=== PATIENT | female | born 1995 | race Hispanic/Latino ===

== ENCOUNTER 2019-12-06 18:44 | Emergency (ER) | payer SELFPAY ==
[2019-12-06 20:43] LABS: Urine Glucose NEGATIVE (NEG)
[2019-12-06 20:44] LABS: Urine Blood TRACE (NEG); Urine Protein 1+ (NEG)
[2019-12-06 22:42] LABS: Absolute Lymphocytes (CBC) 2.8 K/uL (0.7-4.9); Basophils % 0.9 % (0-1.3); Hematocrit 43.4 % (36.0-45.0); MPV 8.7 fL (7.6-11.3); RBC Red Blood Cell Count 5.28 M/uL (3.86-4.86)
[2019-12-06 22:45] LABS: Urine Blood 1+ (NEG); Urine Glucose NEGATIVE (NEG); Urine Protein 2+ (NEG); Urine Specific Gravity >1.030 (1.005-1.030)
[2019-12-06 22:46] LABS: Barbiturates NEGATIVE (NEGATIVE); Benzodiazepines NEGATIVE (NEGATIVE); Cocaine NEGATIVE (NEGATIVE); METHAMPHETAM NEGATIVE (NEGATIVE); Methadone NEGATIVE (NEGATIVE); Opiates NEGATIVE (NEGATIVE); Phencyclidine NEGATIVE (NEGATIVE); THC Cannibis NEGATIVE (NEGATIVE)
[2019-12-06 22:47] LABS: Protime INR 1.02
[2019-12-06 23:29] LABS: ALT/SGPT 41 U/L (12-78); AST/SGOT 23 U/L (15-37); Albumin 4.7 g/dL (3.4-5.0); Alkaline Phosphatase 127 U/L (45-117); BUN Blood Urea Nitrogen 8 mg/dL (7-18); Bicarbonate 27 mmol/L (21-32); Bilirubin Direct 0.2 mg/dL (0-0.2); Bilirubin Total 0.9 mg/dL (0.2-1.0); Glucose Level 93 mg/dL (74-106); Potassium 3.6 mmol/L (3.5-5.1); Sodium Level 140 mmol/L (136-145)
--- NOTE | 2019-12-07 00:25 | EDPHYS ---
Physician Documentation [facility] Name: Phyllis Grijalva Age: 24 yrs Sex: Female : 1995 Arrival Date: 12/06/2019 Time: 18:47 Bed 15 Private MD: ED Physician Christiano Rosen HPI: 12/05 21:47 This 24 yrs old Female presents to ER via Ambulatory with complaints of mh7 Anxiety, Sore Throat, Decreased Appetite. 21:47 The patient presents to the emergency department with anxiety, over unknown mh7 circumstances, depression, over unknown circumstances. Onset: The symptoms/episode began/occurred 2 week(s) ago. Past psychiatric history: Prior diagnosis: Anxiety, Psychiatric medications include: none, Primary psychiatric physician: the patient does not have a primary psychiatric physician, the patient has not had a prior suicide gesture, the patient does not have a previous inpatient psychiatric history, the patient's last psychiatric treatment was 2 year(s) ago. Associated signs and symptoms: Pertinent negatives: abdominal pain, chest pain, chills, delusions, depression, fever, hallucinations, headache, homicidal ideation, nausea, night sweats, palpitations, paranoia, shortness of breath, substance abuse, suicide ideation, tremor, vomiting. Severity of symptoms: At their worst the symptoms were mild. 12/06 00:20 The patient has experienced similar episodes in the past, a few times. 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 - Social history:: Smoking status: Patient denies any tobacco usage or history of. ROS: 12/06 00:20 Constitutional: Negative for fever, chills, and weight loss, Eyes: Negative for injury, mh7 pain, redness, and discharge, Neck: Negative for injury, pain, and swelling, Cardiovascular: Negative for chest pain, palpitations, and edema, Respiratory: Negative for shortness of breath, cough, wheezing, and pleuritic chest pain, Abdomen/GI: Negative for abdominal pain, nausea, vomiting, diarrhea, and constipation, Back: Negative for injury and pain, : Negative for injury, bleeding, discharge, and swelling, MS/Extremity: Negative for injury and deformity, Skin: Negative for injury, rash, and discoloration, Neuro: Negative for headache, weakness, numbness, tingling, and seizure, Allergy/Immunology: Negative for hives, rash, and allergies, Endocrine: Negative for neck swelling, polydipsia, polyuria, polyphagia, and marked weight changes, Hematologic/Lymphatic: Negative for swollen nodes, abnormal bleeding, and unusual bruising. Exam: 00:20 Constitutional: This is a well developed, well nourished patient who is awake, alert, mh7 and in no acute distress. Head/Face: Normocephalic, atraumatic. Eyes: Pupils equal round and reactive to light, extra-ocular motions intact. Lids and lashes normal. Conjunctiva and sclera are non-icteric and not injected. Cornea within normal limits. Periorbital areas with no swelling, redness, or edema. ENT: Nares patent. No nasal discharge, no septal abnormalities noted. Tympanic membranes are normal and external auditory canals are clear. Oropharynx with no redness, swelling, or masses, exudates, or evidence of obstruction, uvula midline. Mucous membranes moist. Neck: Trachea midline, no thyromegaly or masses palpated, and no cervical lymphadenopathy. Supple, full range of motion without nuchal rigidity, or vertebral point tenderness. No Meningismus. Chest/axilla: Normal chest wall appearance and motion. Nontender with no deformity. No lesions are appreciated. Cardiovascular: Regular rate and rhythm with a normal S1 and S2. No gallops, murmurs, or rubs. Normal PMI, no JVD. No pulse deficits. Respiratory: Lungs have equal breath sounds bilaterally, clear to auscultation and percussion. No rales, rhonchi or wheezes noted. No increased work of breathing, no retractions or nasal flaring. Abdomen/GI: Soft, non-tender, with normal bowel sounds. No distension or tympany. No guarding or rebound. No evidence of tenderness throughout. Back: No spinal tenderness. No costovertebral tenderness. Full range of motion. Skin: Warm, dry with normal turgor. Normal color with no rashes, no lesions, and no evidence of cellulitis. MS/ Extremity: Pulses equal, no cyanosis. Neurovascular intact. Full, normal range of motion. Neuro: Awake and alert, GCS 15, oriented to person, place, time, and situation. Cranial nerves II-XII grossly intact. Motor strength 5/5 in all extremities. Sensory grossly intact. Cerebellar exam normal. Normal gait. Psych: Awake, alert, with orientation to person, place and time. Behavior, mood, and affect are within normal limits. Vital Signs: 12/05 19:23 BP 116 / 74; Pulse 81; Resp 16 S; Temp 97.3(TE); Pulse Ox 98% on R/A; Weight 82.55 kg ca1 (R); Height 5 ft. 2 in. (157.48 cm) (R); 22:57 BP 113 / 83; Pulse 82; Resp 16; Pulse Ox 99% on R/A; Pain 0/10; ao 19:23 Body Mass Index 33.29 (82.55 kg, 157.48 cm) ca1 MDM: 21:30 Patient medically screened. [facility] 12/06 00:20 Differential diagnosis: drug withdrawal. acute psychotic break, depression, Anxiety, 7 pharyngitis, globus sensation. Data reviewed: vital signs, nurses notes, lab test result(s), CBC, electrolytes, urinalysis. Data interpreted: Pulse oximetry: on room air is 99 %. Interpretation: normal. Counseling: I had a detailed discussion with the patient and/or guardian regarding: the historical points, exam findings, and any diagnostic results supporting the discharge/admit diagnosis, lab results, the need for outpatient follow up, to return to the emergency department if symptoms worsen or persist or if there are any questions or concerns that arise at home. Response to treatment: the patient's symptoms have markedly improved after treatment. 12/05 20:28 Order name: Urine --Ancillary (enter results); Complete Time: 22:28 tt3 12/05 20:28 Order name: Urine Dipstick--Ancillary (enter results); Complete Time: 22:28 tt3 12/05 21:31 Order name: Acetaminophen; Complete Time: 23:49 7 12/05 21:31 Order name: Basic Metabolic Panel; Complete Time: 23:49 [facility] 12/05 21:31 Order name: CBC with Diff; Complete Time: 23:49 12/05 21:31 Order name: ETOH Level; Complete Time: 23:49 12/05 21:31 Order name: Hepatic Function; Complete Time: 23:49 12/05 21:31 Order name: PT-INR; Complete Time: 23:49 12/05 21:31 Order name: Ptt, Activated; Complete Time: 23:49 12/05 21:31 Order name: Salicylate; Complete Time: 23:49 12/05 21:31 Order name: Urine Drug Screen; Complete Time: 23:49 12/05 21:31 Order name: Rapid Strep; Complete Time: 23:49 12/05 22:32 Order name: Urine Dipstick--Ancillary (enter results); Complete Time: 23:49 12/05 22:32 Order name: Urine --Ancillary (enter results); Complete Time: 23:49 12/05 21:31 Order name: IV Saline Lock; Complete Time: 22:43 12/05 21:31 Order name: Labs collected and sent; Complete Time: 22:43 12/05 21:31 Order name: Urine Dipstick-Ancillary (obtain specimen); Complete Time: 22:43 12/05 21:31 Order name: Urine Test (obtain specimen); Complete Time: 22:42 12/05 22:48 Order name: Throat Culture EDMS Administered Medications: No medications were administered Disposition: 12/07/19 00:25 Discharged to Home. Impression: Anxiety disorder, unspecified, Sore Throat. - Condition is Stable. - Discharge Instructions: Sore Throat, [id number], Generalized Anxiety Disorder. - Prescriptions for Hydroxyzine HCl 50 mg Oral Tablet - take 1 tablet by ORAL route every 8 hours As needed; 20 tablet. - Medication Reconciliation Form, Thank You Letter, Antibiotic Education, Prescription Opioid Use form. - Follow up: Private Physician; When: 2 - 3 days; Reason: Worsening of condition, Recheck today's complaints, Re-evaluation by your physician. Follow up: Dave Vasquez MD; When: 2 - 3 days; Reason: Worsening of condition, Recheck today's complaints. - Problem is an ongoing problem. - Symptoms have improved. 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 Impression: Anxiety disorder, unspecified; ao Sore Throat. Condition is Stable. Forms are Medication Reconciliation Form, Thank You Letter, Antibiotic Education, Prescription Opioid Use. Follow up: Private Physician; When: 2 - 3 days; Reason: Worsening of condition, Recheck today's complaints, Re-evaluation by your physician. Follow up: Dave Vasquez; When: 2 - 3 days; Reason: Worsening of condition, Recheck today's complaints. Problem is an ongoing problem. Symptoms have improved. mh7
--- NOTE | 2019-12-07 00:25 | ER ---
Nurse's Notes [facility] Name: Phyllis Grijalva Age: 24 yrs Sex: Female : 1995 Arrival Date: 12/06/2019 Time: 18:47 Bed 15 Private MD: Diagnosis: Anxiety disorder, unspecified;Sore Throat Presentation: 12/05 19:23 Chief complaint: Spouse and/or significant other states: She feel like she's nervous. ca1 She doesn't want to eat. She feels like there is something in her throat like a lump. This has been going on for 2 weeks now. She doesn't have a sore threat. She took some Tylenol 2 days ago, it went away but when she did not take Tylenol, she feels if again. She also says that she is not sleeping good. Denies cough, denies SOB, denies fever. Coronavirus screen: Proceed with normal triage. Patient denies a cough. Patient denies shortness of breath or difficulty breathing. Patient denies measured and/or subjective temperature greater than 100.4F prior to today's visit. Patient denies travel on a cruise ship or to a country the [facility] currently lists as an affected area. Patient denies contact with known and/or suspected case of COVID-19. Ebola Screen: Patient negative for fever greater than or equal to 101.5 degrees Fahrenheit, and additional compatible Ebola Virus Disease symptoms Patient denies exposure to infectious person. Patient denies travel to an Ebola-affected area in the 21 days before illness onset. No symptoms or risks identified at this time. Initial Sepsis Screen: Does the patient meet any 2 criteria? No. Patient's initial sepsis screen is negative. Does the patient have a suspected source of infection? No. Patient's initial sepsis screen is negative. Risk Assessment: Do you want to hurt yourself or someone else? Patient reports no desire to harm self or others. Onset of symptoms was December 06, 2019. 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 - Social history:: Smoking status: Patient denies any tobacco usage or history of. Screenin:44 Abuse screen: Denies threats or abuse. Denies injuries from another. Nutritional ao screening: No deficits noted. Tuberculosis screening: No symptoms or risk factors identified. Fall Risk None identified. Assessment: 22:10 General: Appears in no apparent distress. comfortable, Behavior is calm, cooperative, ao appropriate for age. 22:10 Pain: Denies pain. Neuro: Level of Consciousness is listless, Oriented to Appropriate ao for age Moves all extremities. Full function Speech is normal, Facial symmetry appears normal. Cardiovascular: Capillary refill < 3 seconds Patient's skin is warm and dry. Respiratory: Airway is patent Respiratory effort is even, unlabored, Respiratory pattern is regular, symmetrical, Breath sounds are clear bilaterally. GI: Abdomen is non-distended. : No signs and/or symptoms were reported regarding the genitourinary system. EENT: Throat is clear is pink. Derm: No signs and/or symptoms reported regarding the dermatologic system. Musculoskeletal: No signs and/or symptoms reported regarding the musculoskeletal system. Circulation, motion, and sensation intact. Range of motion:. 22:57 Reassessment: Patient appears in no apparent distress at this time. Patient and/or ao family updated on plan of care and expected duration. Pain level reassessed. Waiting on lab work. 12/06 01:32 Reassessment: Patient appears in no apparent distress at this time. DC given to patient ao patient agree with POC and to follow up with PCP or a psychiatry. Provided with information on Low cost clinics, PCP and psychiatry in the area. Vital Signs: 12/05 19:23 BP 116 / 74; Pulse 81; Resp 16 S; Temp 97.3(TE); Pulse Ox 98% on R/A; Weight 82.55 kg ca1 (R); Height 5 ft. 2 in. (157.48 cm) (R); 22:57 BP 113 / 83; Pulse 82; Resp 16; Pulse Ox 99% on R/A; Pain 0/10; ao 19:23 Body Mass Index 33.29 (82.55 kg, 157.48 cm) ca1 ED Course: 18:47 Patient arrived in ED. ag5 19:27 Triage completed. ca1 19:27 Arm band placed on right wrist. ca1 21:00 Christiano Rosen MD is Attending Physician. mh7 22:04 Gab Amato, RN is Primary Nurse. ao 22:44 Patient has correct armband on for positive identification. Pulse ox on. NIBP on. ao 12/06 00:24 Dave Vasquez MD is Referral Physician. mh7 01:25 No provider procedures requiring assistance completed. IV discontinued, intact, ao bleeding controlled, No redness/swelling at site. Pressure dressing applied. Administered Medications: No medications were administered Outcome: 00:25 Discharge ordered by . mh7 01:25 Discharged to home ambulatory. ao 01:25 Condition: stable 01:25 Discharge instructions given to patient, Instructed on discharge instructions, follow up and referral plans. Demonstrated understanding of instructions, follow-up care, medications. 01:34 Patient left the ED. ao Signatures: Gab Amato RN RN ao Acob, Cheryl, RN RN ca1 Nehal Castellano ag5 Christiano Rosen MD MD [facility]
[2019-12-07 03:12] VITALS: BP 116/74; TEMP 97.3; O2SAT 98
== END 2019-12-07 01:34 | disposition home or self-care (01) ==
LOC: ER 18:44
DX: F41.9 Anxiety disorder, unspecified (principal); J02.9 Acute pharyngitis, unspecified
CPT/HCPCS: 36415; 80048; 80076; 80307; 80320; 80329; 81003; 81025; 85025; 85610; 85730; 87070; 87081; 99283

== ENCOUNTER 2021-03-12 13:14 | Emergency (ER) | payer SELFPAY ==
--- NOTE | 2021-03-12 13:50 | ER ---
Nurse's Notes [facility] Name: Phyllis Grijalva Age: 26 yrs Sex: Female : 1995 Arrival Date: 03/12/2021 Time: 13:14 Bed 11 [facility] MD: Diagnosis: mood disturbance Presentation: 03/12 13:25 Coronavirus screen: At this time, the client does not indicate any symptoms associated ll1 with coronavirus-19. Ebola Screen: Patient denies travel to an Ebola-affected area in the 21 days before illness onset. Initial Sepsis Screen: Does the patient meet any 2 criteria? No. Patient's initial sepsis screen is negative. Does the patient have a suspected source of infection? No. Patient's initial sepsis screen is negative. Risk Assessment: Do you want to hurt yourself or someone else? Patient reports no desire to harm self or others. Onset of symptoms is unknown. 13:25 Method Of Arrival: Ambulatory ll1 13:25 Acuity: LAURA 3 ll1 13:26 Chief complaint: Patient states: Here for anxiety. Polish speaking. ll1 Historical: - Allergies: 13:25 No Known Allergies; ll1 - PMHx: 13:25 None; ll1 - Immunization history:: Adult Immunizations up to date. - Social history:: Smoking status: Patient denies any tobacco usage or history of. - Family history:: not pertinent. - Hospitalizations: : No recent hospitalization is reported. Screenin:53 Abuse screen: Denies threats or abuse. Nutritional screening: No deficits noted. vg1 Tuberculosis screening: No symptoms or risk factors identified. Fall Risk No fall in past 12 months (0 pts). No secondary diagnosis (0 pts). No IV (0 pts). Ambulatory Aid- None/Bed Rest/Nurse Assist (0 pts). Gait- Normal/Bed Rest/Wheelchair (0 pts) Mental Status- Oriented to own ability (0 pts). Total Carmona Fall Scale indicates No Risk (0-24 pts). Assessment: 13:48 General: Appears in no apparent distress. uncomfortable, Behavior is calm, cooperative. vg1 Pain: Denies pain. Neuro: Level of Consciousness is awake, alert, obeys commands, Oriented to person, place, time, situation. Cardiovascular: Patient's skin is warm and dry. Respiratory: Airway is patent Respiratory effort is even, unlabored. GI: No signs and/or symptoms were reported involving the gastrointestinal system. : No signs and/or symptoms were reported regarding the genitourinary system. EENT: No signs and/or symptoms were reported regarding the EENT system. Derm: Skin is intact, is healthy with good turgor. Musculoskeletal: Circulation, motion, and sensation intact. 13:49 Reassessment: Pt states has been taking depression medication for about three weeks, vg1 feels like they may not be working. Was reassured by provider that it takes about 6 weeks for medication to go into effect. pt states feels depressed after having baby about three months ago. Denies SI or HI. Vital Signs: 13:25 Pain 0/10; ll1 13:26 BP 117 / 78; Pulse 78; Resp 18; Temp 97.1; Pulse Ox 100% ; ll1 ED Course: 13:14 Patient arrived in ED. am2 13:25 Triage completed. ll1 13:26 Arm band placed on Patient placed in an exam room, on a stretcher. ll1 13:28 Jamal Barton MD is Attending Physician. rn 13:32 Agnes Ivy, ESME is Primary Nurse. vg1 13:53 Patient has correct armband on for positive identification. vg1 13:53 No provider procedures requiring assistance completed. Patient did not have IV access vg1 during this emergency room visit. Administered Medications: No medications were administered Outcome: 13:49 Discharge ordered by . rn 13:53 Discharged to home ambulatory. vg1 13:53 Condition: stable 13:53 Discharge instructions given to patient, Instructed on discharge instructions, follow up and referral plans. medication usage, Demonstrated understanding of instructions, follow-up care, medications, Prescriptions given X 1. 14:02 Patient left the ED. vg1 Signatures: Jamal Braton MD MD rn Moreno, Amanda am2 Agnes Ivy RN RN vg1 Sami Holcomb RN RN ll1 Corrections: (The following items were deleted from the chart) 13:26 13:25 PMHx: None; ll1 ll1
--- NOTE | 2021-03-12 13:50 | EDPHYS ---
Physician Documentation [facility] Name: Phyllis Grijalva Age: 26 yrs Sex: Female : 1995 Arrival Date: 03/12/2021 Time: 13:14 Bed 11 Private MD: ED Physician Jamal Barton HPI: 03/12 13:45 This 26 yrs old Female presents to ER via Ambulatory with complaints of rn Anxiety. 13:45 This 26 yrs old Female presents to ER via Ambulatory with complaints of rn Anxiety, depression. 13:45 The patient presents to the emergency department with anxiety, depression. Onset: The rn symptoms/episode began/occurred 2 month(s) ago. Associated signs and symptoms: Pertinent positives; anxiety, depression, Pertinent negatives: fever, hallucinations, homicidal ideation, substance abuse, suicide ideation. Severity of symptoms: At their worst the symptoms were moderate in the emergency department the symptoms are unchanged. The patient has experienced a previous episode. The patient has not recently seen a physician. Patient reports had a baby 2 months ago, since then has been feeling more and more depressed. States her last same thing happened and lasted approximately 3 months. At that time was prescribed sertraline and felt like it helped. Started taking sertraline again 3 weeks ago when stopped breast-feeding baby. Does not feel like it is helping this time. Does not have any thoughts of hurting babies or anybody else. Does not have thoughts of hurting herself. Has some family to help her while is at work. States tried anxiety medication, a benzodiazepine from [place] but seems to just put her to sleep. Not abusing any drugs otherwise or alcohol.. Historical: - Allergies: 13:25 No Known Allergies; ll1 - PMHx: 13:25 None; ll1 - Immunization history:: Adult Immunizations up to date. - Social history:: Smoking status: Patient denies any tobacco usage or history of. - Family history:: not pertinent. - Hospitalizations: : No recent hospitalization is reported. ROS: 13:45 Constitutional: Negative for fever, chills, and weight loss, Eyes: Negative for injury, rn pain, redness, and discharge, ENT: Negative for injury, pain, and discharge, Neck: Negative for injury, pain, and swelling, Cardiovascular: Negative for chest pain, palpitations, and edema, Respiratory: Negative for shortness of breath, cough, wheezing, and pleuritic chest pain, Abdomen/GI: Negative for abdominal pain, nausea, vomiting, diarrhea, and constipation, Back: Negative for injury and pain, : Negative for injury, bleeding, discharge, and swelling, MS/Extremity: Negative for injury and deformity, Skin: Negative for injury, rash, and discoloration, Neuro: Negative for headache, weakness, numbness, tingling, and seizure, Psych: Negative for suicide ideation, homicidal ideation, and hallucinations. Exam: 13:45 Constitutional: This is a well developed, well nourished patient who is awake, alert, rn and in no acute distress. Head/Face: Normocephalic, atraumatic. Eyes: Periorbital areas with no swelling, redness, or edema. Skin: Warm, dry Neuro: Awake and alert, GCS 15, oriented to person, place, time, and situation. Cranial nerves II-XII grossly intact. Motor strength 5/5 in all extremities. Sensory grossly intact. Cerebellar exam normal. Normal gait. Psych: Awake, alert, with orientation to person, place and time. Mood seems depressed. Vital Signs: 13:25 Pain 0/10; ll1 13:26 BP 117 / 78; Pulse 78; Resp 18; Temp 97.1; Pulse Ox 100% ; ll1 MDM: 13:28 Patient medically screened. rn 13:45 Differential diagnosis: depression, blues, depression, anxiety. rn Data reviewed: vital signs, nurses notes, and as a result, I will discharge patient. Counseling: I had a detailed discussion with the patient and/or guardian regarding: the historical points, exam findings, and any diagnostic results supporting the discharge/admit diagnosis, the need for outpatient follow up, to return to the emergency department if symptoms worsen or persist or if there are any questions or concerns that arise at home. Special discussion: I discussed with the patient/guardian in detail that at this point there is no indication for admission to the hospital. It is understood, however, that if the symptoms persist or worsen the patient needs to return immediately for re-evaluation. Based on the history and exam findings, there is no indication for further emergent testing or inpatient evaluation. I discussed with the patient/guardian the need to see the psychiatrist for further evaluation of the symptoms. ED course: Patient requests a medication change since does not feel like it is working. Told her it could take another few weeks to start working but patient insists that we change it. Will prescribe Celexa as patient no longer breast-feeding. Will DC home and recommend psychiatric follow-up. Return precautions given and understood especially if symptoms worsen or is having any thoughts of hurting herself or others.. Administered Medications: No medications were administered Disposition Summary: 03/12/21 13:49 Discharge Ordered Location: Home rn Problem: an ongoing problem rn Symptoms: are unchanged rn Condition: Stable rn Diagnosis - mood disturbance rn Followup: rn - With: Private Physician - When: As needed - Reason: Recheck today's complaints, Re-evaluation by your physician Discharge Instructions: - Discharge Summary Sheet rn - Baby Blues rn - Depression rn Forms: - Medication Reconciliation Form rn - Thank You Letter rn - Antibiotic inclusion intern - Prescription Opioid Use rn - Work release form eb Prescriptions: - Celexa 20 mg Oral Tablet - take 1 tablet by ORAL route once daily; 60 tablet; Refills: 0, Product rn Selection Permitted Signatures: Jamal Barton MD MD rn Lewis, Lynsay, RN RN ll1 Corrections: (The following items were deleted from the chart) 13:26 13:25 PMHx: None; ll1 ll1
[2021-03-12 14:07] VITALS: BP 117/78; TEMP 97.1; O2SAT 100
== END 2021-03-12 14:02 | disposition home or self-care (01) ==
LOC: ER 13:14
DX: O90.6 Postpartum mood disturbance (principal)
CPT/HCPCS: 99282

== ENCOUNTER 2023-09-13 20:24 | Emergency (ER) | payer OTHER ==
[2023-09-13] MEDS ORDERED: KETOROLAC 30 MG/ML INJ ONE (22:00)
[2023-09-13] MEDS ORDERED: ONDANSETRON 4 MG/2 ML VIAL ONE (22:00)
[2023-09-13] MEDS ORDERED: NA CHLORIDE 0.9% 1,000 ML ONE (22:00)
--- NOTE | 2023-09-13 22:18 | RAD REPORT ---
EXAM DESCRIPTION: US - Abdomen Exam Limited - 09/13/2023 9:47 pm CLINICAL HISTORY: ABD PAIN COMPARISON: Abdomen Exam Limited dated 10/02/2022 TECHNIQUE: Sonographic grayscale and color flow images of the right upper abdominal quadrant were o btained. FINDINGS: The gallbladder demonstrates no gallstones. No pericholecystic fluid or gallbladder wall t hickening. The common bile duct is normal measuring 2mm. The liver demonstrates no findings of intrahepatic biliary dilatation. IMPRESSION: Unremarkable examination.
[2023-09-13 22:24] LABS: Specific Gravity 1.015 (1.005-1.030)
[2023-09-13 22:36] LABS: Hemoglobin 12.8 g/dL (12.0-15.0); RBC Red Blood Cell Count 4.68 M/uL (3.86-4.86)
[2023-09-13 22:37] LABS: Absolute Eosinophils 0.2 K/uL (0-0.5); Absolute Lymphocytes (CBC) 3.2 K/uL (0.7-4.9); Absolute Monocytes 0.8 K/uL (0.1-1.3); Basophils % 0.5 % (0-1.3); Eosinophils % 2.4 % (0-4.4); Hematocrit 38.1 % (36.0-45.0); Lymphocytes % 34.6 % (15.3-44.8); MCH 27.3 pg (27.0-35.0); MCHC 33.5 g/dL (32.0-36.0); MCV 81.6 fL (80-100); MPV 8.6 fL (7.6-11.3); Monocytes % 8.3 % (3.3-12.3); Neutrophils % 54.2 % (41.7-73.7); Nucleated Red Blood Cells % 0.1 % (0-0); Platelets 330 thou/uL (152-406); Red Cell Distribution Width 13.8 % (12.1-15.2)
[2023-09-13 22:39] LABS: Specific Gravity 1.015 (1.005-1.030); Sqamous Epithelial <5 /HPF (None Seen); Urine Bacteria <20 /HPF (<20); Urine Bilirubin NEGATIVE (Negative); Urine Blood Negative (Negative); Urine Clarity Clear (Clear); Urine Color Light-Yellow (Yellow); Urine Culture Reflex Order NOT NEEDED; Urine Glucose NEGATIVE (Negative); Urine Ketones NEGATIVE (Negative); Urine Microscopic Reflex YN ORDER UMIC; Urine Nitrite NEGATIVE (Negative); Urine Protein 1+ (Negative); Urine RBC <5 /HPF (None Seen); Urine Urobilinogen Normal (Normal); Urine WBC <5 /HPF (<5); Urine pH 7.5 (5.0-7.0)
[2023-09-13 22:51] LABS: Albumin/Globulin Ratio 0.9 (1.1-1.8); Anion Gap 6.6 mEq/L (5.0-15.0); Bilirubin Total 0.6 mg/dL (0.2-1.0); Globulin 4.3 g/dL (2.3-3.5); Potassium 3.6 mEq/L (3.5-5.1); Protein, Total 8.3 g/dL (6.4-8.2)
--- NOTE | 2023-09-13 22:55 | ER ---
Nurse's Notes [facility] Name: Phyllis Grijalva Age: 28 yrs Sex: Female : 1995 Arrival Date: 09/13/2023 Time: 20:24 Bed 20 Private MD: Diagnosis: Upper abdominal pain, unspecified Presentation: 09/12 20:37 Chief complaint: Patient states: "for the past 3 weeks I've had right upper abdominal mb9 pain and nausea. Nothing is making it better. Last night I had pain like this there was something wrong with my gallbladder". Coronavirus screen: Vaccine status: Patient reports receiving the 2nd dose of the covid vaccine. Ebola Screen: No symptoms or risks identified at this time. Initial Sepsis Screen: Does the patient meet any 2 criteria? No. Patient's initial sepsis screen is negative. Does the patient have a suspected source of infection? No. Patient's initial sepsis screen is negative. Risk Assessment: Do you want to hurt yourself or someone else? Patient reports no desire to harm self or others. Onset of symptoms was September 13, 2023. 20:37 Acuity: LAURA 3 mb9 20:37 Method Of Arrival: Ambulatory mb9 Triage Assessment: 20:41 General: Appears in no apparent distress. Behavior is calm, cooperative. Pain: mb9 Complains of pain in abdomen. EENT: No signs and/or symptoms were reported regarding the EENT system. Neuro: Level of Consciousness is awake, alert, obeys commands, Oriented to person, place, time, situation, Appropriate for age. Cardiovascular: Patient's skin is warm and dry. Respiratory: Airway is patent Respiratory effort is even, unlabored, Respiratory pattern is regular, symmetrical. GI: Abdomen is round non-distended, Abd is soft Abdomen is tender to palpation in right upper quadrant. : No signs and/or symptoms were reported regarding the genitourinary system. Derm: Skin is pink, warm \\T\\ dry. Musculoskeletal: Range of motion: intact in all extremities. Historical: - Allergies: 20:39 No Known Allergies; mb9 - Home Meds: 20:39 None [Active]; mb9 - PMHx: 20:39 None; mb9 - PSHx: 20:39 section; mb9 - Immunization history:: Adult Immunizations up to date. - Infectious Disease History:: Denies. - Social history:: Smoking status: Patient denies any tobacco usage or history of. Screenin:07 [facility] ED Fall Risk Assessment (Adult) History of falling in the last 3 months, tm6 including since admission No falls in past 3 months (0 pts) Confusion or Disorientation No (0 pts) Intoxicated or Sedated No (0 pts) Impaired Gait No (0 pts) Mobility Assist Device Used No (0 pt) Altered Elimination No (0 pt) Score/Fall Risk Level 0 - 2 = Low Risk Oriented to surroundings, Maintained a safe environment. Abuse screen: Denies threats or abuse. Denies injuries from another. Nutritional screening: No deficits noted. Tuberculosis screening: No symptoms or risk factors identified. Assessment: 22:07 General: Appears in no apparent distress. uncomfortable, Behavior is calm, cooperative. tm6 Pain: Complains of pain in right upper quadrant Pain currently is 5 out of 10 on a pain scale. Pain began 3 weeks ago Is continuous. Neuro: Level of Consciousness is awake, alert, obeys commands, Oriented to person, place, time, situation. Cardiovascular: No deficits noted. Patient's skin is warm and dry. Respiratory: Airway is patent Respiratory effort is even, unlabored, Respiratory pattern is regular, symmetrical. GI: Abdomen is flat, non-distended, Bowel sounds present X 4 quads. Abd is soft and non tender X 4 quads. Reports upper abdominal pain, nausea. : No signs and/or symptoms were reported regarding the genitourinary system. EENT: No signs and/or symptoms were reported regarding the EENT system. Derm: No signs and/or symptoms reported regarding the dermatologic system. Musculoskeletal: No signs and/or symptoms reported regarding the musculoskeletal system. 23:07 Reassessment: Patient and/or family updated on plan of care and expected duration. Pain tm6 level reassessed. Patient is alert, oriented x 3, equal unlabored respirations, skin warm/dry/pink. Patient states feeling better. Vital Signs: 20:37 BP 133 / 85; Pulse 80; Resp 18; Temp 98.2; Pulse Ox 99% on R/A; Weight 74.84 kg; Height mb9 5 ft. 5 in. ; 22:07 BP 135 / 86; Pulse 72; Pulse Ox 100% ; Pain 5/10; tm6 23:06 BP 126 / 80; Pulse 77; Resp 19; Temp 97.7; Pulse Ox 99% on R/A; Pain 2/10; tm6 20:37 Body Mass Index 27.46 (74.84 kg, 165.1 cm) mb9 22:07 Pain Scale: Adult tm6 23:06 Pain Scale: Adult tm6 ED Course: 20:27 Patient arrived in ED. im 20:37 Arm band placed on. mb9 20:38 Sasha Villareal FNP-C is PHCP. kb 20:38 Girma Austin MD is Attending Physician. kb 20:39 Triage completed. mb9 21:32 Irma Ken, ESME is Primary Nurse. tm6 21:49 Abdomen Limited US In Process Unspecified. EDMS 21:52 CBC with Diff Sent. tm6 21:52 CMP Sent. tm6 21:52 Lipase Sent. tm6 21:52 Test, Urine Sent. tm6 21:52 Urinalysis w/ reflexes Sent. tm6 21:53 Inserted saline lock: 22 gauge in left antecubital area, using aseptic technique. tm6 22:07 Patient has correct armband on for positive identification. Placed in gown. Bed in low tm6 position. Call light in reach. Side rails up X2. Provided Education on: plan of care. Client placed on continuous cardiac and pulse oximetry monitoring. NIBP monitoring applied. Pulse ox on. NIBP on. Door closed. Noise minimized. Lights dimmed. Warm blanket given. 23:07 No provider procedures requiring assistance completed. IV discontinued, intact, tm6 bleeding controlled, No redness/swelling at site. Pressure dressing applied. Administered Medications: 22:07 Drug: NS 0.9% IV 1000 ml IV at 1 bolus Per protocol; 1000 mL bolus Route: IV; Rate: 1 tm6 bolus; Site: left antecubital; 23:09 Follow up: IV Status: Completed infusion; IV Intake: 1000ml tm6 22:07 Drug: TORadol - Ketorolac IVP 15 mg IVP once Route: IVP; Site: left antecubital; tm6 22:07 Drug: Ondansetron IVP 4 mg IVP once; over 2 minutes Route: IVP; Site: left antecubital; tm6 Medication: 22:07 VIS not applicable for this client. tm6 Intake: 23:09 IV: 1000ml; Total: 1000ml. tm6 Outcome: 22:55 Discharge ordered by . patrick 23:07 Discharged to home ambulatory, tm6 23:07 Condition: stable 23:07 Discharge instructions given to patient, Instructed on discharge instructions, follow up and referral plans. medication usage, Demonstrated understanding of instructions, follow-up care, medications, Prescriptions given X 1, 23:09 Patient left the ED. tm6 Signatures: Dispatcher [employer] EDMS Sasha Villareal, GANG PUSHER-C GANG PUSHER-CkDarcy Perez, RN RN mb9 Sri José Tawney RN RN tm6 Corrections: (The following items were deleted from the chart) 20:41 20:37 Chief complaint: Patient states: "for the past 3 weeks I've had right upper mb9 abdominal pain and nausea. Nothing is making it better" mb9 22:10 21:53 Inserted saline lock: 20 gauge in left antecubital area, using aseptic technique. tm6 tm6
--- NOTE | 2023-09-13 22:55 | EDPHYS ---
Physician Documentation [facility] Name: Phyllis Grijalva Age: 28 yrs Sex: Female : 1995 Arrival Date: 09/13/2023 Time: 20:24 Bed 20 Private MD: ED Physician Girma Austin HPI: 09/12 21:38 This 28 yrs old Female presents to ER via Ambulatory with complaints of kb Abdominal Pain. 21:38 Pt is a 28 year old female who presents for RUQ pain for 3 weeks. Reports nausea. kb Denies vomiting, diarrhea, fever. States she was told she had gallstones in the past. States the pain has been constant since onset. . Historical: - Allergies: 20:39 No Known Allergies; mb9 - Home Meds: 20:39 None [Active]; mb9 - PMHx: 20:39 None; mb9 - PSHx: 20:39 section; mb9 - Immunization history:: Adult Immunizations up to date. - Infectious Disease History:: Denies. - Social history:: Smoking status: Patient denies any tobacco usage or history of. ROS: 21:39 Constitutional: As per HPI kb Exam: 21:39 Constitutional: This is a well developed, well nourished patient who is awake, alert, kb and in no acute distress. Head/Face: Normocephalic, atraumatic. ENT: Moist Mucous membranes Cardiovascular: Regular rate Respiratory: Respirations even and unlabored. No increased work of breathing. Talking in full sentences Skin: Warm, dry with normal turgor. Normal color. MS/ Extremity: Pulses equal, no cyanosis. Neurovascular intact. Full, normal range of motion. Neuro: Awake and alert, GCS 15, oriented to person, place, time, and situation. Moves all extremities. Normal gait. 21:39 Abdomen/GI: Inspection: abdomen appears normal, Bowel sounds: normal, Palpation: soft, in all quadrants, mild abdominal tenderness, in the right upper quadrant, Vital Signs: 20:37 BP 133 / 85; Pulse 80; Resp 18; Temp 98.2; Pulse Ox 99% on R/A; Weight 74.84 kg; Height mb9 5 ft. 5 in. ; 22:07 BP 135 / 86; Pulse 72; Pulse Ox 100% ; Pain 5/10; tm6 23:06 BP 126 / 80; Pulse 77; Resp 19; Temp 97.7; Pulse Ox 99% on R/A; Pain 2/10; tm6 20:37 Body Mass Index 27.46 (74.84 kg, 165.1 cm) mb9 22:07 Pain Scale: Adult tm6 23:06 Pain Scale: Adult tm6 MDM: 20:38 Patient medically screened. kb 21:39 Differential diagnosis: cholecystitis, Cholelithiasis, non-specific abd pain. Data kb reviewed: vital signs, nurses notes. 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 09/12 20:42 Order name: CBC with Diff; Complete Time: 22:50 kb 09/12 20:42 Order name: CMP; Complete Time: 22:53 kb 09/12 20:42 Order name: Lipase; Complete Time: 22:53 kb 09/12 20:42 Order name: Test, Urine; Complete Time: 22:50 kb 09/12 20:42 Order name: Urinalysis w/ reflexes; Complete Time: 22:50 kb 09/12 20:42 Order name: Abdomen Limited US; Complete Time: 22:23 kb 09/12 20:42 Order name: IV Saline Lock; Complete Time: 21:52 kb 09/12 20:42 Order name: Labs collected and sent; Complete Time: 21:52 kb Administered Medications: 22:07 Drug: NS 0.9% IV 1000 ml IV at 1 bolus Per protocol; 1000 mL bolus Route: IV; Rate: 1 tm6 bolus; Site: left antecubital; 23:09 Follow up: IV Status: Completed infusion; IV Intake: 1000ml tm6 22:07 Drug: TORadol - Ketorolac IVP 15 mg IVP once Route: IVP; Site: left antecubital; tm6 22:07 Drug: Ondansetron IVP 4 mg IVP once; over 2 minutes Route: IVP; Site: left antecubital; tm6 Disposition: 23:43 Co-signature as Attending Physician, Girma Austin MD I agree with the assessment sp4 and plan of care. I reviewed the patient's care provided by the Advanced Practice Provider and agree with the diagnosis and treatment plan. Disposition Summary: 09/13/23 22:55 Discharge Ordered Notes: Location: Home kb Condition: Stable kb Diagnosis - Upper abdominal pain, unspecified kb Followup: kb - With: Emergency Department - When: As needed - Reason: Worsening of condition Followup: kb - With: Private Physician - When: 2 - 3 days - Reason: Recheck today's complaints, Continuance of care, Re-evaluation by your physician Discharge Instructions: - Discharge Summary Sheet kb - Biliary Colic, Adult kb - Abdominal Pain, Adult, [id number] kb Forms: - Medication Reconciliation Form kb - Thank You Letter kb - Antibiotic Education kb - Prescription Opioid Use kb - Patient Portal Instructions kb - Leadership Thank You Letter kb Prescriptions: - Zofran 4 mg Oral tablet - take 1 tablet ORAL route every 6 hours As needed; 12 tablet; Refills: 0, kb Product Selection Permitted - dicyclomine 20 mg Oral tablet - take 1 tablet ORAL route 4 times per day As needed; 20 tablet; Refills: 0, kb Product Selection Permitted Signatures: Dispatcher [employer] Sasha Pal, BUSINESS OPERATIONS DIRECTOR-C BUSINESS OPERATIONS DIRECTOR-Darcy Dhillon, RN RN mb9 Girma Austin MD MD sp4 Irma Ken RN RN tm6
[2023-09-13 23:13] VITALS: O2SAT 99
[2023-09-13 23:41] VITALS: BP 126/80; TEMP 97.7
== END 2023-09-13 23:09 | disposition home or self-care (01) ==
LOC: ER 20:24
DX: R10.11 Right upper quadrant pain (principal)
CPT/HCPCS: 85025; 81001; 36415; 81025; 83690; 80053; 76705; J2405; J7030